=== PATIENT | female | born 1980 | race Caucasian/White ===

== ENCOUNTER 2017-12-10 09:10 | Emergency (ER) | payer OTHER ==
--- NOTE | 2017-12-10 10:18 | XRay Report ---
RIGHT FOOT, 3 views: History: Pain, injury, deformity of third toe Posterior dislocation is identified at the proximal interphalangeal joint of the third toe. The remaining joint spaces are normal in alignment. A mildly displaced fracture is identified involving the distal phalanx of the great toe with extension to the interphalangeal joint. This is best demonstrated on the oblique image. No additional fracture is appreciated. Large plantar spur is noted. IMPRESSION: Fracture, distal phalanx, great toe. Dislocation, proximal interphalangeal joint, third toe. Plantar spur.
[2017-12-10] MEDS ORDERED: MOTRIN PO ONE (10:32)
[2017-12-10 11:04] VITALS: BP 133/81
[2017-12-10] MEDS ORDERED: NORCO 10/325 PO ONE (11:08)
[2017-12-10] MEDS ORDERED: MARCAINE 0.5% INFILTRATI ONE (11:08)
--- NOTE | 2017-12-10 11:19 | Emergency Department Report ---
ED Lower Extremity HPI - General Chief Complaint: Extremity Injury, Lower Stated Complaint: RIGHT ANKLE INJURY Time Seen by Provider: 12/10/17 11:03 Source: patient Mode of arrival: Wheelchair Limitations: Language Barrier - History of Present Illness Initial Comments: This is a 29-year-old female brought by nontoxic, well nourished in appearance, no acute signs of distress presents to the ED with c/o of right foot and toes pain and swelling. Patient stated that she was walking today and tripped and hit her toes. Denies any numbness, tingling, fever, chills, nausea , vomiting, chest pain shortness of breath. Patient denies any other trauma. She denies any allergies or significant past medical history upset diabetes. MD Complaint: foot injury -: This morning Injury: Toes: Right Type of Injury: blunt Place: home Severity: mild Severity scale (0 -10): 8 Improves With: immobilization Worsens With: movement, palpation Context: direct blow Associated Symptoms: swelling, able to partially bear weight. denies: snap/pop sensation, numbness, tingling, unable to bear weight, ambulatory - Related Data Previous Rx's Medication Instructions Recorded Last Taken Type Ibuprofen [Motrin] 600 mg PO Q8H PRN #30 tablet 12/10/17 Unknown Rx Allergies Allergy/AdvReac Type Severity Reaction Status Date / Time No Known Allergies Allergy Verified 12/10/17 11:13 ED Review of Systems ROS: Stated complaint: RIGHT ANKLE INJURY Other details as noted in HPI Constitutional: denies: chills, fever Eyes: denies: eye pain, eye discharge, vision change ENT: denies: ear pain, throat pain Respiratory: denies: cough, shortness of breath, wheezing Cardiovascular: denies: chest pain, palpitations Endocrine: no symptoms reported Gastrointestinal: denies: abdominal pain, nausea, diarrhea Genitourinary: denies: urgency, dysuria, discharge Musculoskeletal: denies: back pain, joint swelling, arthralgia Skin: denies: rash, lesions Neurological: denies: headache, weakness, paresthesias Psychiatric: denies: anxiety, depression Hematological/Lymphatic: denies: easy bleeding, easy bruising ED Past Medical Hx - Past Medical History Hx Diabetes: Yes - Surgical History Past Surgical History?: No - Social History Smoking Status: Never Smoker Substance Use Type: None - Medications Home Medications: Home Medications Medication Instructions Recorded Confirmed Last Taken Type Ibuprofen [Motrin] 600 mg PO Q8H PRN #30 tablet 12/10/17 Unknown Rx ED Physical Exam - General Limitations: Language Barrier General appearance: alert, in no apparent distress - Head Head exam: Present: atraumatic, normocephalic - Eye Eye exam: Present: normal appearance - ENT ENT exam: Present: mucous membranes moist - Neck Neck exam: Present: normal inspection - Respiratory Respiratory exam: Present: normal lung sounds bilaterally. Absent: respiratory distress, wheezes, rales, rhonchi, stridor, chest wall tenderness, accessory muscle use, decreased breath sounds, prolonged expiratory - Cardiovascular Cardiovascular Exam: Present: regular rate, normal rhythm, normal heart sounds. Absent: bradycardia, tachycardia, irregular rhythm, systolic murmur, diastolic murmur, rubs, gallop - GI/Abdominal GI/Abdominal exam: Present: soft, normal bowel sounds. Absent: distended, tenderness, guarding, rebound, rigid, diminished bowel sounds - Rectal Rectal exam: Present: deferred - Extremities Exam Extremities exam: Present: normal inspection, full ROM, tenderness, normal capillary refill. Absent: pedal edema, joint swelling, calf tenderness - Expanded Lower Extremity Exam Right Hip exam: Present: normal inspection, full ROM Upper Leg exam: Present: normal inspection, full ROM Knee exam: Present: normal inspection, full ROM Lower Leg exam: Present: normal inspection, full ROM Ankle exam: Present: normal inspection, full ROM. Absent: tenderness, swelling , abrasion, laceration, ecchymosis, deformity, crepidus, dislocation, erythema, anterior draw sign Foot/Toe exam: Present: normal inspection, full ROM, tenderness, swelling, dislocation (3rd distal phalange). Absent: abrasion, laceration, ecchymosis, deformity, crepidus, erythema, amputation, puncture wound, foreign body, calcaneal tenderness, tenderness at base of 5th metatarsal, nail avulsion, subungual hematoma Neuro vascular tendon exam: Present: no vascular compromise. Absent: pulse deficit, abnormal cap refill, motor deficit, sensory deficit, tendon deficit, extremity cold to touch, pallor, abnormal 2-point discrimination, decreased fine /light touch, foot drop, peroneal nerve deficit, significant pain with passive ROM of distal joint Gait: Positive: observed and limited by pain - Back Exam Back exam: Present: normal inspection, full ROM. Absent: tenderness, CVA tenderness (R), CVA tenderness (L), muscle spasm, paraspinal tenderness, vertebral tenderness, rash noted - Neurological Exam Neurological exam: Present: alert, oriented X3, CN II-XII intact, reflexes normal - Psychiatric Psychiatric exam: Present: normal affect, normal mood - Skin Skin exam: Present: warm, dry, intact, normal color. Absent: rash ED Course Vital Signs 12/10/17 12/10/17 12/10/17 09:28 10:50 10:57 Temperature 98.6 F Pulse Rate 65 59 L Respiratory 18 20 15 Rate Blood Pressure 136/91 133/81 O2 Sat by Pulse 100 100 Oximetry - Reevaluation(s) Reevaluation #1: 12/10/17 11:26 Patient is speaking in full sentences with no signs of distress noted. - Orthopedic Joint Reduction Joint #1 Consent Obtained: verbal consent Side: right Joint Reduction Location: toe Analgesia: digital block Local Anesthetic Used: Bupivicaine 0.5% Amount of Anesthetic Used (mls): 3 Post-Reduction Neuro Exam: intact Post-Reduction Vascular Exam: intact Post Reduction X-Ray Obtained: Yes Post Reduction X-Ray Results: reduced Splint Applied: Yes (ortho shoe) Patient Tolerated Procedure: well, no complications ED Lower Extremity MDM - Medical Decision Making This is a 37-year-old female that presents with 1st phalang fracture and 3rd distal phalang dislocation. Patient is stable and was examined by me. Reduction has been successfully done and x-ray postreduction obtained. Patient received a postop shoe and crutches and was educated how to use crutches by RN. Patient was instructed to respiratory therapy. Patient received [place] and was instructed not to operate any machinery after discharge due to drowsiness and Patient stated that her was at the bedside will drive the patient. Patient was instructed referred to Follow-up with a orthopedic doctor in 3-5 days or if symptoms worsen and continue return to emergency room as soon as possible. At time of discharge, the patient does not seem toxic or ill in appearance. No acute signs of distress noted. Patient agrees to discharge treatment plan of care. No further questions noted by the patient. Critical care attestation.: If time is entered above; I have spent that time in minutes in the direct care of this critically ill patient, excluding procedure time. ED Disposition Clinical Impression: Toe joint dislocation Qualifiers: Encounter type: initial encounter Laterality: right Qualified Code(s): S93.104A - Unspecified dislocation of right toe(s), initial encounter Toe fracture Qualifiers: Encounter type: initial encounter Toe: great toe Fracture type: closed Phalanx : proximal Fracture alignment: nondisplaced Laterality: right Qualified Code(s) : S92.414A - Nondisplaced fracture of proximal phalanx of right great toe, initial encounter for closed fracture Disposition: TO HOME OR SELFCARE Is pt being admited?: No Does the pt Need Aspirin: No Condition: Stable Instructions: Toe Fracture (ED), RICE Therapy (ED), Ibuprofen (By mouth), Crutch Instructions (ED) Additional Instructions: Follow-up with a orthopedic doctor in 3-5 days or if symptoms worsen and continue return to emergency room as soon as possible. Rest, ice, and elevate foot. Prescriptions: Ibuprofen [Motrin] 600 mg PO Q8H PRN #30 tablet PRN Reason: Pain Referrals: PRIMARY CAREMD [Primary Care Provider] - 3-5 Days ELISA FERNANDEZ MD [Staff Physician] - 3-5 Days [facility] [place] [Outside] - 3-5 Days [facility] [Outside] - 3-5 Days
[2017-12-10] MEDS ORDERED: ZOFRAN ODT PO ONE (12:43)
--- NOTE | 2017-12-10 13:08 | XRay Report ---
RIGHT TOES, 2 VIEWS History: Postreduction film, pain. Findings: Frontal and slightly oblique views of the right toes were obtained. There appears to be anatomic alignment of the third toe. No obvious acute fracture. Impression: Successful reduction of the third toe dislocation. No obvious associated fracture.
== END 2017-12-10 13:25 | disposition home or self-care (01) ==
LOC: ED 09:10
DX: S93.111A Dislocation of interphalangeal joint of right great toe, initial encounter (principal); E11.9 Type 2 diabetes mellitus without complications; W10.8XXA Fall (on) (from) other stairs and steps, initial encounter; Y93.89 Activity, other specified; Y92.89 Other specified places as the place of occurrence of the external cause; Y99.8 Other external cause status
CPT/HCPCS: 99283; Q0162